=== PATIENT | female | born 1965 | race Caucasian/White ===

== ENCOUNTER 2019-12-09 09:26 | Day surgery (SDC) | payer MEDICAID ==
[2019-12-08 14:00] LABS: BASOPHILS % (AUTO) 0.4 % (0-1); EOSINOPHILS # (AUTO) 0.1 X10'3 (0-0.9); LYMPHOCYTES % (AUTO) 31.8 % (21-51); MEAN CORPUSCULAR HEMOGLOBIN 31.6 PG (27.0-31.0); MEAN CORPUSCULAR HGB CONC 34.4 g/dL (33.0-36.5); MEAN CORPUSCULAR VOLUME 91.9 FL (78-98); MEAN PLATELET VOLUME 8.9 FL (7.4-10.4); MONOCYTES # (AUTO) 0.5 X10'3 (0-0.9); MONOCYTES % (AUTO) 7.4 % (2-12); NEUTROPHILS # (AUTO) 3.7 X10'3 (1.8-7.7); NEUTROPHILS % (AUTO) 58.4 % (42-75); PRE OP HEMATOCRIT 39.3 % (35.0-45.0); PRE OP HEMOGLOBIN 13.5 g/dL (12.0-16.0); PRE OP PLATELET COUNT 241 X10'3 (140-440); RED BLOOD COUNT 4.28 X10'6 (4.20-5.60); RED CELL DISTRIBUTION WIDTH 13.5 % (11.5-14.5)
[2019-12-08 14:13] LABS: ALKALINE PHOSPHATASE 79 IU/L (46-116); BLOOD UREA NITROGEN 18 MG/DL (7-18); BUN/CREATININE RATIO 15.8 (6.6-38.0); CALCIUM 9.8 MG/DL (8.5-10.1); CHLORIDE 104 MMOL/L (99-107); CREATININE 1.14 MG/DL (0.40-0.90); PRE OP ALT 16 U/L (30-65); PRE OP ANION GAP 4 (8-16); PRE OP AST 14 U/L (10-37); PRE OP BILIRUB, TOTAL 0.4 MG/DL (0.0-1.0); PRE OP GLUCOSE 97 MG/DL (70-104); PRE OP POTASSIUM 3.7 MMOL/L (3.4-5.1); PRE OP SODIUM 142 MMOL/L (135-145); TOTAL CARBON DIOXIDE 33.9 MMOL/L (24-32); TOTAL PROTEIN 7.9 G/DL (6.4-8.2); eGFR 50 ML/MIN
[~2019-12-09] VITALS: Ht 157.5 cm; Wt 77.1 kg
[~2019-12-09 09:26] MED LIST: ERGO400T7 PO; FAMO40TA58 PO; LEVO125T PO; LISI1TAB28 PO; LORA-269 PO; NAPR-435 PO; POTA20TA19 PO; SERT50TA PO; TRAZ-251 PO; cefazolin/dext.iso 2gm/100ml 100 ML IV ONE; famotidine 20mg tablet PO ONE; ringers solution, lacted 1,000 ML IV SCH; vancomycin inj 1,500 MG in normal saline 300ml IV soln IV ONE
[2019-12-09 09:59] VITALS: BP 112/81
[2019-12-09] MEDS ORDERED: BUPIVAcaine/PF 2.5 mg/ml (0.25%) 30ml vial ONE (11:36)
[2019-12-09] MEDS ORDERED: LIDOcaine 0.5% (5mg/ml) 50ml vial ONE (12:22)
[2019-12-09] MEDS ORDERED: fentaNYL/PF 50MCG/1 ML 2ML syringe ONE (12:23)
[2019-12-09] MEDS ORDERED: midazolam 2 mg/2 ml injection ONE (12:24)
[2019-12-09] MEDS ORDERED: propofol inj 20 ML IV ONE (12:43)
[2019-12-09 13:00] VITALS: BP 134/85
--- NOTE | 2019-12-09 13:00 | NUR ---
Received from OR via , accompanied by Anesthesiologist DR RAMSEY and report given by Anesthesiolgist. AWAKENS TO VOICE. VITALS STABLE. DRESSING DI. BHARAT PAIN. FINGERD WARM AND PINK.
[2019-12-09 13:10] VITALS: BP 127/79
[2019-12-09 13:20] VITALS: BP 128/87
[2019-12-09 13:30] VITALS: BP 126/57
--- NOTE | 2019-12-09 13:40 | NUR ---
AWAKE AND ORIENTED. VITALS STABLE. SPLINT DI. BHARAT PAIN. HOME WITH A FRIEND AT THIS TIME.
== END 2019-12-09 13:40 | disposition home or self-care (01) ==
LOC: PAS 09:26 → EDSTATUS 11:45 → PAS 13:40 → UNDODISIN 13:40
PROVIDERS: ATTEND Orthopaedic Surgery
DX: M66.341 Spontaneous rupture of flexor tendons, right hand (principal); M65.311 Trigger thumb, right thumb; I10 Essential (primary) hypertension; F41.8 Other specified anxiety disorders; E03.9 Hypothyroidism, unspecified; K21.9 Gastro-esophageal reflux disease without esophagitis; E66.8 Other obesity; Z68.31 Body mass index [BMI] 31.0-31.9, adult; Z79.899 Other long term (current) drug therapy; Z87.891 Personal history of nicotine dependence; Z98.890 Other specified postprocedural states
CPT/HCPCS: 26055; 26356; 36415; 80053; 82948; 85025; A6222; J2001; J2250; J2704; J3010; J3370; J3490; A4215; A4618; A6449; A7000; J7120